=== PATIENT | female | born 2000 | race Caucasian/White ===

== ENCOUNTER 2023-11-29 08:16 | Day surgery (SDC) | payer SELFPAY ==
[2023-11-29] MEDS ORDERED: EPINEPHrine 1 MG/ML VIAL ONE (09:03)
[2023-11-29] MEDS ORDERED: Bupivacaine 0.25% HCL 30 ML VIAL ONE (09:03)
[2023-11-29 09:07] VITALS: BMI 22.1
[2023-11-29] MEDS ORDERED: SUGAMMADEX SODIUM 200 MG/2 ML VIAL ONE (09:45)
[2023-11-29] MEDS ORDERED: Ondansetron PF 4 MG/2 ML Vial ONE (09:45)
[2023-11-29] MEDS ORDERED: Dexamethasone 4 mg/ml Vial ONE (09:45)
[2023-11-29] MEDS ORDERED: Lidocaine 1% PF 5 ML VIAL ONE (09:45)
[2023-11-29] MEDS ORDERED: Rocuronium Bromide 10 MG/ML (10ML VIAL) ONE (09:45)
[2023-11-29] MEDS ORDERED: PROPOFOL 40 ML ONE (09:45)
[2023-11-29] MEDS ORDERED: SUCCINYLCHOLINE/SOD CL,ISO/PF 200 MG/10 ML SYRINGE FS ONE (09:46)
[2023-11-29] MEDS ORDERED: Ketorolac Tromethamine 30 MG (1 mL) VIAL ONE (09:46)
[2023-11-29] MEDS ORDERED: fentaNYL 50 mcg/mL 1 mL Vial ONE (09:47)
[2023-11-29] MEDS ORDERED: PROPOFOL 20 ML ONE (10:56)
[2023-11-29] MEDS ORDERED: HYDROcodone/Acetaminophen 5/325 mg Tablet ONE (11:53)
== END 2023-11-29 12:30 | disposition home or self-care (01) ==
LOC: CSHSDC 08:16
PROVIDERS: ATTEND Surgery
PROC: 0DTJ4ZZ Resection of Appendix, Percutaneous Endoscopic Approach (ICD-10-PCS; principal; 2023-11-29)
DX: K35.80 Unspecified acute appendicitis (principal); Z88.7 Allergy status to serum and vaccine
CPT/HCPCS: 88304; A4649; J0171; J0665; J1100; J1885; J2405; J2704; J3010